=== PATIENT | female | born 1935 ===

== ENCOUNTER 2022-11-05 00:20 | Emergency (ER) | payer MEDICARE, OTHER ==
[2022-11-05] MEDS ORDERED: amLODIPine 5 MG Tab PO ONE ×2 (00:53→01:07)
== END 2022-11-05 01:13 | disposition home or self-care (01) ==
LOC: MW.ED 00:20
DX: I10 Essential (primary) hypertension (principal); E03.9 Hypothyroidism, unspecified; Z88.0 Allergy status to penicillin; Z88.2 Allergy status to sulfonamides
CPT/HCPCS: 99283; A9270